=== PATIENT | female | born 1980 | race African-American/Black ===

== ENCOUNTER 2017-06-07 07:08 | Emergency (ER) | payer BC ==
[~2017-06-07] VITALS: Ht 162.6 cm; Wt 77.1 kg
--- NOTE | ~2017-06-07 | EKG ---
[place] [address] [facility] [employer] [place] [address] ELECTROCARDIOGRAM REPORT Name: ISAÍASTEN Charline Room #: [facility] Amelia#: [id number] Admission: 06/07/17 Attend Phys: Discharge: 06/07/17 Date of : 82 Report #: [id number] THIS REPORT FOR: //name// [facility] ED Test Date: 2017-06-07 Test Time: 07:54:48 Pat Name: TEN METZ Department: Room: Gender: F [place] Head: Srinivasa GUNDERSON RN : 1980 Requested By: Nelson Zayas Order Number: [id number] MD: Guerrero Nair Measurements Intervals [place] Rate: 85 P: 14 ME: 149 QRS: 14 QRSD: 83 T: 9 QT: 366 QTc: 436 Interpretive Statements Sinus rhythm No significant abnormality No previous ECG available for comparison Electronically Signed On 06-07-2017 8:48:27 [employer] by Guerrero Nair [email or web address] <ELECTRONICALLY SIGNED> By: Guerrero Nair MD, [facility] 06/07/17 [id number] Guerrero Nair MD, FACC /EPI
[2017-06-07] MEDS ORDERED: PROVIGIL 200 M200 M1 PO (07:45)
[2017-06-07] MEDS ORDERED: XYREM500 MG/1 M PO ×2 (07:47→07:48)
[2017-06-07 08:01] LABS: HEMATOCRIT 39.8 % (37.0-47.0); HEMOGLOBIN 13.2 gm/dL (12.0-15.0); MCHC 33.1 g/dL (28.0-37.0); MCV 84.6 fL (80.0-100.0); RBC 4.71 mil/uL (4.20-5.00); RDW 14.2 % (10.5-14.5); WBC 8.5 thou/uL (4.0-11.0)
[2017-06-07 08:09] LABS: CALCIUM 9.5 mg/dL (8.5-10.1); POTASSIUM 4.2 mmol/L (3.5-5.1)
[2017-06-07 08:15] LABS: ALBUMIN 3.8 g/dL (3.4-5.0); TOTAL BILIRUBIN 0.1 mg/dL (<0.1-1.0); TOTAL PROTEIN 7.9 g/dL (6.4-8.2)
== END 2017-06-07 08:40 | disposition home or self-care (01) ==
LOC: ER 07:08
PROVIDERS: Emergency Medicine
DX: R42 Dizziness and giddiness (principal); R19.7 Diarrhea, unspecified; R11.0 Nausea